=== PATIENT | female | born 1955 | race Caucasian/White ===

== ENCOUNTER 2016-12-04 11:44 | Emergency (ER) | payer OTHER ==
[2016-12-04 11:48] VITALS: BP 134/74
--- NOTE | 2016-12-04 13:29 | RAD ---
HISTORY: Left leg pain COMPARISONS: None relevant TECHNIQUE: Multiple transverse and longitudinal ultrasound images were obtained of the left lower extremity from the level of the common femoral vein inferiorly through to the infrapopliteal veins using grayscale, color Doppler, and spectral Doppler imaging with and without compression and with augmentation. Comparison images were obtained of the contralateral common femoral vein. FINDINGS: VEINS: The venous system of the left lower extremity is compressible throughout its course, with normal flow on color Doppler imaging and normal response to augmentation on spectral Doppler imaging. SOFT TISSUES: Unremarkable. OTHER FINDINGS: None. IMPRESSION: NO LEFT LOWER EXTREMITY DEEP VEIN THROMBOSIS
--- NOTE | 2016-12-21 19:11 | ED ---
Lower Extremity - HPI Summary HPI Summary: PT SAYS SHE WAS REFERRED TO ED BY [facility] TO R/O DVT IN L LEG. PT C/O L LEG PAIN, PT DENIES SWELLING OR REDNESS. PT SAYS IT HURT WORSE YESTERDAY AND HAS BEEN FEELING BETTER TODAY. DENIES HISTORY OF DVT, BUT WANTED TO MAKE SURE. DENIES RADIATION OF ANY PAIN UP OR DOWN THE LEG. THE PAIN IS DISCRETELY LOCATED OVER THE POSTERIOR LOWER LEG WITHOUT ERYTHEMA OR SWELLING. DENIES USE OF BLOOD THINNERS. - History of Current Complaint Chief Complaint: EDExtremityLower Stated Complaint: LT LEG COMPLAINT Time Seen by Provider: 12/04/16 12:46 Hx Obtained From: Patient Mechanism Of Injury: Unknown Onset of Pain: Immediate Onset/Duration: Hours Severity Initially: Mild Severity Currently: Mild Pain Intensity: 0 Pain Scale Used: 0-10 Numeric Timing: Constant Location: Is Discrete @ - POSTERIOR LEFT CALF PAIN Associated Signs And Symptoms: Negative: Swelling, Redness, Bruising Aggravating Factor(s): Standing, Ambulation Alleviating Factor(s): Rest Able to Bear Weight: No - Risk Factors Gout Risk Factors: Negative DVT Risk Factors: Negative Septic Arthritis Risk Factor: Negative - Allergies/Home Medications Allergies/Adverse Reactions: Allergies Allergy/AdvReac Type Severity Reaction Status Date / Time No Known Allergies Allergy Verified 12/04/16 11:48 PMH/Surg Hx/FS Hx/Imm Hx Previously Healthy: Yes GI History: Reports: Other GI Disorders - llq pain intermittent since mar. bloating - Cancer History Hx Chemotherapy: No Hx Radiation Therapy: No - Surgical History Surgery Procedure, Year, and Place: tonsillectomy - Immunization History Hx Pertussis Vaccination: No Immunizations Up to Date: Unable to Obtain/Confirm Infectious Disease History: No Infectious Disease History: Denies: Traveled Outside the [place] in Last 30 Days - Social History Occupation: Employed Full-time Lives: With Family Alcohol Use: None Hx Substance Use: Yes Substance Use Type: Reports: None Hx Tobacco Use: No Smoking Status (MU): Never Smoked Tobacco Review of Systems Constitutional: Negative Eyes: Negative Cardiovascular: Negative Respiratory: Negative Genitourinary: Negative Positive: no symptoms reported, see HPI Positive: Myalgia - POSTERIOR LEFT CALF PAIN Skin: Negative Neurological: Negative All Other Systems Reviewed And Are Negative: Yes Physical Exam Triage Information Reviewed: Yes Vital Signs On Initial Exam: Initial Vitals Temp Pulse Resp BP Pulse Ox 97.5 F 92 16 134/74 99 12/04/16 11:45 12/04/16 11:45 12/04/16 11:45 12/04/16 11:45 12/04/16 11:45 Vital Signs Reviewed: Yes Appearance: Positive: Well-Appearing, Well-Nourished Skin: Positive: Warm, Skin Color Reflects Adequate Perfusion Head/Face: Positive: Normal Head/Face Inspection Eyes: Positive: EOMI, ANTON, Conjunctiva Clear Neck: Positive: Supple, No Lymphadenopathy Respiratory/Lung Sounds: Positive: Clear to Auscultation, Breath Sounds Present Cardiovascular: Positive: RRR, Pulses are Symmetrical in both Upper and Lower Extremities Musculoskeletal: Positive: Normal, Strength/ROM Intact, Pain @ - LEFT POSTERIOR CALF PAIN Neurological: Positive: Speech Normal Psychiatric: Positive: Normal AVPU Assessment: Alert Diagnostics - Vital Signs Vital Signs Temp Pulse Resp BP Pulse Ox 12/04/16 11:45 97.5 F 92 16 134/74 99 - Laboratory Lab Statement: Any lab studies that have been ordered have been reviewed, and results considered in the medical decision making process. Lower Extremity Course/Dx - Course Course Of Treatment: PATIENT PRESENTS WITH LEFT POSTERIOR CALF PAIN. CONCERNS WITH DVT. DENIES OTHER COMPLAINTS. PATIENT IS SENT TO US. NEGATIVE FOR DVT. SHE IS OK WITH PLAN FOR NSAIDS AND HEAT AND WILL RETURN IF ANY OTHER CONCENRS OR SYMPTOMS. - Diagnoses Differential Diagnosis/HQI/PQRI: Positive: DVT, Sprain, Strain Provider Diagnoses: Calf pain Discharge - Discharge Plan Condition: Stable Disposition: HOME Patient Education Materials: Leg Cramps (ED) Referrals: Arturo Nino MD [Primary Care Provider] - Additional Instructions: Please follow up with your PCP If you develop any worsening symptoms - return to the ED Moist heat to the legs Ibuprofen 600mg three times daily
== END 2016-12-04 15:22 | disposition home or self-care (01) ==
LOC: ED 11:44
DX: M79.662 Pain in left lower leg (principal)
CPT/HCPCS: 99281